=== PATIENT | male | born 1935 | race Caucasian/White ===

== ENCOUNTER 2019-09-09 13:04 | Emergency (ER) | payer MEDICARE, OTHER, SELFPAY ==
[2019-09-09] VITALS (15 sets, daily range): BP systolic 107–141; BP diastolic 56–79; PULSE 83–104; RESP 18–32; TEMP 36.2; O2SAT 89–100
--- NOTE | 2019-09-09 13:26 | ED_ITS ---
HPI - SOB/Dyspnea General Chief Complaint: Shortness of Breath/Dyspnea Stated Complaint: Can't breathe, chronic cough Time Seen by Provider: 09/09/19 13:13 Source: patient Mode of arrival: Wheelchair Limitations: no limitations History of Present Illness HPI Narrative: 84M former smoker with history of ESRD () and DM complaint of progressive exertional shortness of breath over the past week. He denies any chest pain nor fever or chills. He states that he felt so poorly today that he skipped his dialysis. His dry weight is 80 and he is very close to that today. He has had no fever chills nor runny nose, sore throat or increasing cough. He has had no nausea, vomiting or diarrhea. He denies any unexplained diaphoresis. He states he is more short of breath with exertion or lying flat. He denies any change in medications or diet. Related Data Allergies Allergy/AdvReac Type Severity Reaction Status Date / Time No Known Drug Allergies Allergy Verified 09/09/19 13:22 Review of Systems Constitutional Constitutional: Denies chills, Denies fatigue, Denies fever(s), Denies frequent falls, Denies lethargy and Denies weakness Eyes Eyes: Denies change in vision, Denies eye discharge, Denies irritation and Denies loss of vision ENT Ears, Nose, Mouth, and Throat: Denies change in voice, Denies dizziness, Denies neck pain, Denies sore throat and Denies throat swelling Cardiovascular Cardiovascular: Denies chest pain, Denies irregular heart rhythm, Denies lightheadedness, Denies palpitations, Denies dyspnea, Denies dyspnea on exertion and Denies orthopnea Respiratory Respiratory: Denies cough, Denies dyspnea, Denies dyspnea on exertion and Denies wheezing Gastrointestinal Gastrointestinal: Denies abdominal pain, Denies change in bowel habits, Denies diarrhea, Denies nausea and Denies vomiting Genitourinary Genitourinary: Denies hematuria, Denies flank pain, Denies urinary incontinence and Denies urinary urgency Musculoskeletal Musculoskeletal: Denies back pain, Denies muscle weakness, Denies neck pain, Denies numbness and Denies tingling Integumentary/Breasts Skin/Breast: Denies pruritus, Denies erythema, Denies rash and Denies wounds Neurologic Neurologic: Denies behavioral changes, Denies confusion, Denies dizziness, Denies frequent falls, Denies loss of vision, Denies numbness, Denies tingling and Denies weakness Psychiatric Psychiatric: Denies anxiety, Denies behavioral changes, Denies confusion, Denies depression, Denies homicidal ideation and Denies suicidal ideation Endocrine Endocrine: Denies fatigue, Denies flushing and Denies palpitations Hematologic/Lymphatic Hematologic/Lymphatic: Denies easy bruising Allergic/Immunologic Allergic/Immunologic: Denies urticaria, Denies throat swelling and Denies wheezing Patient History Medical History (Updated 09/09/19 @ 18:16 by Abhilash Merrill DO) Dialysis patient (Acute) Social History Smoking Status: Never smoker Smoking Status: Never smoker alcohol intake frequency: 0-2 drinks per day Substance Use Type: does not use Exam Narrative Exam Narrative: GENERAL: [84] year old patient appears stated age. Well- nourished, well-developed patient, in mild distress. HEAD: Atraumatic. Normocephalic. EYES: Pupils equal round and reactive. Extraocular motions intact. No scleral icterus. No injection or drainage. ENT: Nose without bleeding, purulent drainage. Throat without erythema, tonsil lar hypertrophy or exudate. Airway patent. NECK: Trachea midline. Non tender CARDIOVASCULAR: Regular rate and rhythm without murmurs, gallops, or rubs. RESPIRATORY: Increased work of breathing, crackles in bilateral bases GASTROINTESTINAL: Abdomen soft, non-tender, nondistended. EXTREMITIES: No edema or joint tenderness. BACK: Nontender without deformity or crepitance. No flank tenderness. NEURO: AOx3. SKIN: No rash or erythema of visible areas Initial Vital Signs Initial Vital Signs: Vital Signs Temperature 97.1 F L 09/09/19 13:08 Pulse Rate 104 H 09/09/19 13:08 Respiratory Rate 24 09/09/19 13:08 Blood Pressure 139/79 09/09/19 13:08 Pulse Oximetry 94 09/09/19 13:08 Course Orders Ordered: ED Orders 09/09/19 13:20 Basic Metabolic Panel Stat C-Reactive Protein Quant Stat Complete Blood Count AUTO DIFF Stat Ferritin Stat Lactate (Lactic Acid) Stat Magnesium Stat NT-proBNP (BNP-Adult 18+) Stat Procalcitonin Stat Prothrombin Time INR Stat Troponin & CK Cardiac Panel Stat 09/09/19 13:27 Consult to Respiratory Therapy Evaluate & Treat EKG-12 Lead Stat 09/09/19 13:28 XR chest 1V Stat Heparin Sodium/Dextrose (Heparin Drip) 25,000 unit in 500 mls @ 20 mls/hr IV CONT LISANDRO; Protocol Last Titration: 09/09/19 16:57 Dose: 1,000 units/hr, 20 mls/hr Documented by: Admin: 09/09/19 14:58 Dose: 1,000 units/hr, 20 mls/hr Documented by: KARL Discontinued Medications Heparin Sodium (Porcine) (Heparin) 5,000 unit IV NOW ONE Stop: 09/09/19 14:46 Last Admin: 09/09/19 14:58 Dose: 5,000 unit Documented by: KARL Vital Signs Vital signs: Vital Signs - 8 hr 09/09/19 13:08 09/09/19 13:15 09/09/19 13:39 Temperature 97.1 F L Pulse Rate 104 H 98 H 96 H Respiratory Rate 24 26 H 32 H Blood Pressure 139/79 Blood Pressure [Left Arm] 141/78 H 134/65 Pulse Oximetry 94 95 92 09/09/19 13:45 09/09/19 14:00 09/09/19 14:15 Temperature Pulse Rate 98 H 92 H 95 H Respiratory Rate 26 H 24 24 Blood Pressure Blood Pressure [Left Arm] 122/62 107/56 L 125/70 Pulse Oximetry 99 95 94 09/09/19 14:30 09/09/19 14:46 09/09/19 15:00 Temperature Pulse Rate 91 H 92 H 90 Respiratory Rate 28 H 30 H 28 H Blood Pressure Blood Pressure [Left Arm] 113/62 121/62 118/56 L Pulse Oximetry 91 93 93 09/09/19 15:15 09/09/19 15:45 09/09/19 15:46 Temperature Pulse Rate 87 87 Respiratory Rate 27 H 29 H Blood Pressure Blood Pressure [Left Arm] 112/61 119/68 Pulse Oximetry 91 100 95 09/09/19 16:00 09/09/19 16:15 09/09/19 16:50 Temperature Pulse Rate 87 85 83 Respiratory Rate 29 H 27 H 18 Blood Pressure Blood Pressure [Left Arm] 121/64 111/58 L 113/58 L Pulse Oximetry 95 96 MDM - SOB/Dyspnea Lab Data Result diagrams: 09/09/19 13:20 06/02/20 13:20 Labs: Lab Results 09/09/19 09/09/19 09/09/19 Range/Units 13:20 13:20 13:20 WBC 11.6 H (4.5-11.0) X10^3/uL RBC 3.90 L (4.5-5.9) X10^6/uL Hgb 12.8 L (13.5-17.5) g/dL Hct 37.7 L (41-53) % MCV 96.7 (80-100) fL MCH 32.9 (26-34) PG MCHC 34.0 (30-36) % RDW 14.8 (11.6-14.8) % Plt Count 257 (150-400) X10^3/uL Neut % (Auto) 74.1 (50-75) % Lymph % (Auto) 16.0 L (25-40) % [place] % (Auto) 7.9 (3-14) % Eos % (Auto) 1.1 L (2-4) % Baso % (Auto) 0.9 (0-2) % Neut # (Auto) 8600 H (9999-6342) /uL Lymph # (Auto) 1900 (0508-6486) /uL [place] # (Auto) 900 (0-900) /uL Eos # (Auto) 100 (0-450) /uL Baso # (Auto) 100 (0-100) /uL PT 12.6 (10.1-12.7) SECONDS INR 1.1 (0.9-1.3) Sodium (137-145) mmol/L Potassium (3.4-5.1) mmol/L Chloride (98-107) mmol/L Carbon Dioxide (22-32) mmol/L BUN (9-20) mg/dL Creatinine (0.66-1.25) mg/dL Estimated GFR (>60) mL/min BUN/Creatinine Ratio (6-22) Glucose (80-110) mg/dL Lactate (0.7-2.1) mmol/L Calcium (8.4-10.2) mg/dL Magnesium (1.6-2.3) mg/dL Ferritin (18-464) ng/mL Total Creatine Kinase (55-170) U/L CK-MB (CK-2) CK-MB (CK-2) Rel Index Troponin I (0.01-0.034) ng/mL C-Reactive Protein (<1.0) mg/dL NT-Pro-B Natriuret Pep (<450) pg/mL Procalcitonin (<0.5) ng/mL COVID-19 PCR (Negative) 09/09/19 09/09/19 09/09/19 Range/Units 13:20 13:20 13:20 WBC (4.5-11.0) X10^3/uL RBC (4.5-5.9) X10^6/uL Hgb (13.5-17.5) g/dL Hct (41-53) % MCV (80-100) fL MCH (26-34) PG MCHC (30-36) % RDW (11.6-14.8) % Plt Count (150-400) X10^3/uL Neut % (Auto) (50-75) % Lymph % (Auto) (25-40) % [place] % (Auto) (3-14) % Eos % (Auto) (2-4) % Baso % (Auto) (0-2) % Neut # (Auto) (8560-7056) /uL Lymph # (Auto) (7904-0068) /uL [place] # (Auto) (0-900) /uL Eos # (Auto) (0-450) /uL Baso # (Auto) (0-100) /uL PT (10.1-12.7) SECONDS INR (0.9-1.3) Sodium 138 (137-145) mmol/L Potassium 4.3 (3.4-5.1) mmol/L Chloride 96 L (98-107) mmol/L Carbon Dioxide 25 (22-32) mmol/L BUN 44 H (9-20) mg/dL Creatinine 6.57 H (0.66-1.25) mg/dL Estimated GFR 8.1 L (>60) mL/min BUN/Creatinine Ratio 6.7 (6-22) Glucose 194 H (80-110) mg/dL Lactate 3.3 H (0.7-2.1) mmol/L Calcium 9.7 (8.4-10.2) mg/dL Magnesium 2.3 (1.6-2.3) mg/dL Ferritin (18-464) ng/mL Total Creatine Kinase 65 (55-170) U/L CK-MB (CK-2) TNP CK-MB (CK-2) Rel Index TNP Troponin I 1.200 H* (0.01-0.034) ng/mL C-Reactive Protein (<1.0) mg/dL NT-Pro-B Natriuret Pep (<450) pg/mL Procalcitonin 0.39 (<0.5) ng/mL COVID-19 PCR (Negative) 09/09/19 09/09/19 09/09/19 Range/Units 13:20 13:20 15:55 WBC (4.5-11.0) X10^3/uL RBC (4.5-5.9) X10^6/uL Hgb (13.5-17.5) g/dL Hct (41-53) % MCV (80-100) fL MCH (26-34) PG MCHC (30-36) % RDW (11.6-14.8) % Plt Count (150-400) X10^3/uL Neut % (Auto) (50-75) % Lymph % (Auto) (25-40) % [place] % (Auto) (3-14) % Eos % (Auto) (2-4) % Baso % (Auto) (0-2) % Neut # (Auto) (0143-3029) /uL Lymph # (Auto) (8741-3588) /uL [place] # (Auto) (0-900) /uL Eos # (Auto) (0-450) /uL Baso # (Auto) (0-100) /uL PT (10.1-12.7) SECONDS INR (0.9-1.3) Sodium (137-145) mmol/L Potassium (3.4-5.1) mmol/L Chloride (98-107) mmol/L Carbon Dioxide (22-32) mmol/L BUN (9-20) mg/dL Creatinine (0.66-1.25) mg/dL Estimated GFR (>60) mL/min BUN/Creatinine Ratio (6-22) Glucose (80-110) mg/dL Lactate 2.4 H (0.7-2.1) mmol/L Calcium (8.4-10.2) mg/dL Magnesium (1.6-2.3) mg/dL Ferritin 901 H (18-464) ng/mL Total Creatine Kinase (55-170) U/L CK-MB (CK-2) CK-MB (CK-2) Rel Index Troponin I (0.01-0.034) ng/mL C-Reactive Protein 3.8 H (<1.0) mg/dL NT-Pro-B Natriuret Pep (<450) pg/mL Procalcitonin (<0.5) ng/mL COVID-19 PCR Negative (Negative) MDM Narrative Medical decision making narrative: Given patient's history of exertional worsening and lack of improvement after last round of dialysis call placed to Cardiology regarding patient. Troponin has come back positive and we sure the opinion that the patient should be treated as an NSTEMI and is most probably cared for at [facility] given his need for dialysis and likely pending heart catheterization. Call to Dr. Pappas (Nephrology) she is happy to help arrange for dialysis during hospitalization at [facility]. Hospitalist contacted and happy to accept. Critical Care Time Critical Care Time Critical Care Time: Yes Total Critical Care Time: 30 Attestation: The high probability of a clinically significant, sudden or life threatening deterioration of the [CV] system(s) required my full and direct attention, intervention and personal management. The aggregate critical care time was [30] minutes. This time is in addition to time spent performing reported procedures but includes the following: [x] Data Review and interpretation [x] Patient assessment and monitoring of vital signs [x] Documentation [x] Medication orders and management Discharge Plan Departure Patient Disposition: [facility] Clinical Impression: Acute non-ST elevation myocardial infarction (NSTEMI) Pulmonary edema Qualifiers: Chronicity: acute Qualified Code(s): J81.0 - Acute pulmonary edema Referrals: Kyler Wright MD [Primary Care Provider] -
--- NOTE | 2019-09-09 13:27 | PC.NURSE ---
shortness of breath for one week, coughing, denies fever. dialysis pt, right arm with +thrill/bruit, last dialysis not better.
--- NOTE | 2019-09-09 13:28 | DI.RAD.S_ITS ---
PROCEDURE: XR CHEST 1V INDICATIONS: SOB, missed dialysis TECHNIQUE: One view of the chest was acquired. COMPARISON: [facility], , CHEST 2 VIEW, 03/16/2017, 11:30. FINDINGS: Surgical changes and devices: None. Lungs and pleura: Prominent increased pulmonary vascularity is present. There is increased retrocardiac opacity. Mediastinum: Mediastinal contours appear normal. Heart size is normal. Bones and chest wall: No suspicious bony lesions. Overlying soft tissues appear unremarkable. IMPRESSION: Marked increased vascularity suggestive of edema. In addition, increased retrocardiac opacity is present possibly representing focal edema versus consolidation such as pneumonia. Dictated by: Lou Rosado M.D. on 09/09/2019 at 14:09 Approved by: Lou Rosado M.D. on 09/09/2019 at 14:10
[2019-09-09 13:47] LABS: Add Manual Diff / Slide Review NO; Basophils Absolute Auto 100 /uL (0-100); Basophils Percent Auto 0.9 % (0-2); Eosinophils Absolute Auto 100 /uL (0-450); Eosinophils Percent Auto 1.1 % (2-4); Hematocrit 37.7 % (41-53); Hemoglobin 12.8 g/dL (13.5-17.5); Lymphocytes Absolute Auto 1900 /uL (1100-4500); Mean Corpuscular Hemoglobin 32.9 PG (26-34); Mean Corpuscular Volume 96.7 fL (80-100); Monocytes Absolute Auto 900 /uL (0-900); Monocytes Percent Auto 7.9 % (3-14); Neutrophils Absolute Auto 8600 /uL (1500-7000); Neutrophils Percent Auto 74.1 % (50-75); Platelet Count 257 X10^3/uL (150-400); Red Cell Distribution Width 14.8 % (11.6-14.8); White Blood Cell Count 11.6 X10^3/uL (4.5-11.0)
[2019-09-09 13:49] LABS: BUN Creatinine Ratio 6.7 (6-22); Blood Urea Nitrogen 44 mg/dL (9-20); Calcium 9.7 mg/dL (8.4-10.2); Carbon Dioxide 25 mmol/L (22-32); Chloride 96 mmol/L (98-107); Creatine Kinase 65 U/L (55-170); Estimated Glomerular Filt Rate 8.1 mL/min (>60); Glucose 194 mg/dL (80-110); HEMOLYSIS < 15 (0-50); INR 1.1 (0.9-1.3); Lactate (Lactic Acid) 3.3 mmol/L (0.7-2.1); Magnesium 2.3 mg/dL (1.6-2.3); Potassium 4.3 mmol/L (3.4-5.1); Prothrombin Time 12.6 SECONDS (10.1-12.7); Sodium 138 mmol/L (137-145)
[2019-09-09 14:07] LABS: Procalcitonin 0.39 ng/mL (<0.5)
--- NOTE | 2019-09-09 14:12 | PC.NURSE ---
melatonin and advil, usually takes 81mg aspirin, last dose 4 days ago.
[2019-09-09 14:20] LABS: C-Reactive Protein Quant 3.8 mg/dL (<1.0)
[2019-09-09] MEDS: ASPIRIN 81 MG CHEW TAB 324 MG (14:22)
--- NOTE | 2019-09-09 14:29 | PC.NURSE ---
breathing better with resting.
[2019-09-09 14:30] LABS: COVID19 -Nasal RAPID Negative (Negative)
[2019-09-09 14:52] LABS: Ferritin 901 ng/mL (18-464)
[2019-09-09] MEDS: HEPARIN 5,000 UNIT/ML VIAL 5000 UNIT IV (14:58)
[2019-09-09] MEDS: HEPARIN DRIP 25,000 UNIT/500 ML IV.SOLN 20 UNIT IV (14:58)
[2019-09-09 15:40] LABS: Reflexed Lactate in 2 Hours Y
[2019-09-09 16:18] LABS: Lactate 2HR (Lactic Acid Rflx) 2.4 mmol/L (0.7-2.1)
== END 2019-09-09 16:51 | disposition short-term general hospital (02) ==
PROVIDERS: Emergency Provider Emergency Medicine; PCP Internal Medicine
DX: I21.4 Non-ST elevation (NSTEMI) myocardial infarction (principal); J81.0 Acute pulmonary edema; R05 Cough
CPT/HCPCS: 36415; 71045; 80048; 82550; 82728; 83605; 83735; 83880; 84145; 84484; 85025; 85610; 86140; 87635; 93005; 93010; 96365; 96366; 96375; 99285; 99291; J1644